=== PATIENT | female | born 1995 | race African-American/Black ===

== ENCOUNTER 2017-12-11 14:41 | Emergency (ER) | payer OTHER ==
--- NOTE | 2017-12-11 18:36 | ED ---
HPI Cardiac - HPI Summary HPI Summary: The patient is a 22 y/o F presenting to [facility] with a chief complaint of generalized weakness and an increased heart rate starting yesterday at 0730. Throughout the day yesterday, she felt uneasy as her heart was racing; this persisted throughout the night until about 1030 this morning when her symptoms subsided. She states that she couldn't sleep because she was worried. She denies swelling in her extremities. - History of Current Complaint Chief Complaint: EDWeakness Stated Complaint: RAPID HEARTRATE/WEAKNESS Time Seen by Provider: 12/11/17 18:14 Hx Obtained From: Patient Onset/Duration: Started Hours Ago - yesterday at 0730, Resolved Timing: Lasting Hours - from 0730 yesterday to 1030 today Initial Severity: Moderate Current Severity: None Pain Intensity: 0 Pain Scale Used: 0-10 Numeric Chest Pain Location: Diffuse Character: Fast Aggravating Factor(s): Nothing Alleviating Factor(s): Nothing Associated Signs and Symptoms: Positive: Weakness - generalized. Negative: Edema - Allergy/Home Medications Allergies/Adverse Reactions: Allergies Allergy/AdvReac Type Severity Reaction Status Date / Time No Known Allergies Allergy Verified 12/11/17 14:51 Home Medications: Home Medications NK [No Home Medications Reported] 12/11/17 [History Confirmed 12/11/17] PMH/Surg Hx/FS Hx/Imm Hx Endocrine/Hematology History: Denies: Hx Diabetes Respiratory History: Denies: Hx Asthma Sensory History: Denies: Hx Legally Blind, Hx Deafness Opthamlomology History: Denies: Hx Legally Blind EENT History: Denies: Hx Deafness - Surgical History Surgery Procedure, Year, and Place: none Infectious Disease History: No Infectious Disease History: Denies: Traveled Outside the [place] in Last 30 Days - Family History Known Family History: Negative: Diabetes - Social History Alcohol Use: None Hx Substance Use: No Substance Use Type: Reports: None Hx Tobacco Use: No Smoking Status (MU): Never Smoked Tobacco Review of Systems Positive: Other - increased heart rate Negative: Edema Positive: Weakness - generalized All Other Systems Reviewed And Are Negative: Yes Physical Exam - Summary Physical Exam Summary: Appearance: The patient is well-nourished in no acute distress and in no acute pain. Skin: The skin is warm and dry and skin color reflects adequate perfusion. HEENT: The head is normocephalic and atraumatic. The pupils are equal and reactive. The conjunctivae are clear and without drainage. Nares are patent and without drainage. Mouth reveals moist mucous membranes and the throat is without erythema and exudate. The external ears are intact. The ear canals are patent and without drainage. The tympanic membranes are intact. Neck: The neck is supple with full range of motion and non-tender. There are no carotid bruits. There is no neck vein distension. Respiratory: Chest is non-tender. Lungs are clear to auscultation and breath sounds are symmetrical and equal. Cardiovascular: Heart is regular rate and rhythm. There is no murmur or rub auscultated. There is no peripheral edema and pulses are symmetrical and equal. Abdomen: The abdomen is soft and non-tender. There are normal bowel sounds heard in all four quadrants and there is no organomegaly palpated. Musculoskeletal: There is no back tenderness noted. Extremities are non-tender with full range of motion. There is good capillary refill. There is no peripheral edema or calf tenderness elicited. Neurological: Patient is alert and oriented to person, place and time. The patient has symmetrical motor strength in all four extremities. Cranial nerves are grossly intact. Deep tendon reflexes are symmetrical and equal in all four extremities. Psychiatric: The patient has an appropriate affect and does not exhibit any anxiety or depression. Triage Information Reviewed: Yes Vital Signs On Initial Exam: Initial Vitals Temp Pulse Resp BP Pulse Ox 98.3 F 79 14 128/72 99 12/11/17 14:51 12/11/17 14:51 12/11/17 14:51 12/11/17 14:51 12/11/17 14:51 Vital Signs Reviewed: Yes Diagnostics - Vital Signs Vital Signs Temp Pulse Resp BP Pulse Ox 12/11/17 18:00 88 14 118/78 100 12/11/17 17:59 13 12/11/17 17:38 98 F 85 14 134/72 100 12/11/17 14:51 98.3 F 79 14 128/72 99 - Laboratory Result Diagrams: 12/11/17 19:10 12/11/17 19:10 Lab Statement: Any lab studies that have been ordered have been reviewed, and results considered in the medical decision making process. - EKG 18:27 Cardiac Rate: NL - 75 BPM EKG Rhythm: Sinus Rhythm EKG Interpretation: Normal sinus rhythm, normal ST, no ectopy, no STEMI Disposition - Course Course Of Treatment: Ms. Baires presented C/O having a racing heart (she didn' t take her pulse) for at least a day which has returned to normal now but left her exhausted.She denies any other symptoms or exacerbating factors. She has not traveled recently. She was in no distress when I saw her and her vitals were stable. They remained so while she was monitored here in the ED and she had no dysrhythmias. Her labs were WNL with the exception of an elevated d- dimer. CTA of the chest was WNL. I am not sure of the etiology of her palpitations, this may be due to anxiety and stress but I think she needs further outpatient W/U and have referred her to [facility]. - Diagnoses Provider Diagnoses: Palpitations Discharge - Sign-Out/Discharge Documenting (check all that apply): Patient Departure - Discharge Plan Condition: Stable Disposition: HOME Patient Education Materials: Heart Palpitations (ED) Forms: *School Release Referrals: [facility] - Severo VALLE [Primary Care Provider] - 3 Days Additional Instructions: Please follow up with your primary care provider in 2-3 days. Return to the emergency department for any new or worsening symptoms. - Billing Disposition and Condition Condition: STABLE Disposition: Home - Attestation Statements Document Initiated by Saul: Yes Documenting Scribe: Dunia Connor Provider For Whom Saul is Documenting (Include Credential): Dr. Musa Blankenship MD Scribe Attestation: Dunia Doe scribed for Dr. Musa Blankenship MD on 12/12/17 at 0738. Scribe Documentation Reviewed: Yes Provider Attestation: The documentation as recorded by the Dunia reilly accurately reflects the service I personally performed and the decisions made by me, Dr. Musa Blankenship MD
[2017-12-11 19:23] LABS: ABS Basophils 0.1 10^3/ul (0-0.2); ABS Eosinophils 0.2 10^3/ul (0-0.6); ABS Lymphocytes 2.4 10^3/ul (1.0-4.8); ABS Monocytes 0.9 10^3/ul (0-0.8); ABS Neutrophils 3.3 10^3/ul (1.5-7.7); ABS Nucleated RBC 0 10^3/ul; Eosinophil % 3.2 % (0-6); Hematocrit 34 % (35-47); Mean Corpuscular HGB Conc 33 g/dl (31-36); Mean Corpuscular Hemoglobin 24 pg (27-31); Mean Corpuscular Volume 75 fL (80-97); Mean Platelet Volume 8.3 um3 (7.4-10.4); Nucleated Red Blood Cells % 0.1; Platelet Count 239 10^3/ul (150-450); Red Blood Count 4.49 10^6/ul (4.00-5.40); Red Cell Distribution Width 17 % (10.5-15); White Blood Count 6.9 10^3/ul (3.5-10.8)
[2017-12-11] MEDS ORDERED: Iohexol 350* (CONTRAST) 500 ML MDV IV ONE (21:12)
--- NOTE | 2017-12-11 22:08 | RAD ---
EXAM: CT Angiography Chest With Intravenous Contrast EXAM DATE/TIME: 12/11/2017 9:30 PM CLINICAL HISTORY: 22 years old, female; Signs and symptoms; Other: Irregular heart rate; Additional info: Tachycardia TECHNIQUE: Axial computed tomographic angiography images of the chest with intravenous contrast using CT angiography protocol. All CT scans at this facility use at least one of these dose optimization techniques: automated exposure control; mA and/or kV adjustment per patient size (includes targeted exams where dose is matched to clinical indication); or iterative reconstruction. Coronal and sagittal reformatted images were created and reviewed. MIP reconstructed images were created and reviewed. CONTRAST: 62 ml of OMNI 350 administered intravenously. COMPARISON: No relevant prior studies available. FINDINGS: Pulmonary arteries: Normal. No pulmonary emboli. Aorta: Normal. No aortic aneurysm. No aortic dissection. Lungs: Normal. No consolidation. No masses. Pleural space: Normal. No pneumothorax. No pleural effusion. Heart: Normal. No cardiomegaly. No pericardial effusion. Bones/joints: Unremarkable. No acute fracture. Soft tissues: Unremarkable. Lymph nodes: Unremarkable. No enlarged lymph nodes. IMPRESSION: No acute findings. To contact [facility] with a general question: Operations Center - [phone] For direct physician to physician contact: Physician Hotline - [phone] [facility] ([facility] Facility ID #[id number])
[2017-12-11 23:05] VITALS: BP 123/65
== END 2017-12-11 23:04 | disposition home or self-care (01) ==
LOC: ED 14:41
DX: R00.2 Palpitations (principal)
CPT/HCPCS: 36415; 71275; 80053; 83605; 83735; 84443; 84484; 84702; 85025; 85379; 93005; 96374; 99283; Q9967